=== PATIENT | female | born 1990 | race American Indian/Alaskan Native ===

== ENCOUNTER 2021-07-20 01:54 | Emergency (ER) | payer MEDICAID ==
[2021-07-20 04:20] VITALS: BP 131/90
[2021-07-20] MEDS ORDERED: hydrOXYzine PAMOATE 25 MG CAP PO ONE (08:30)
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
== END 2021-07-20 10:01 | disposition home or self-care (01) ==
LOC: ED 01:54
DX: F41.9 Anxiety disorder, unspecified (principal); F10.20 Alcohol dependence, uncomplicated
CPT/HCPCS: 99282